=== PATIENT | male | born 1975 | race Caucasian/White ===

== ENCOUNTER 2021-10-27 23:31 | Observation (INO) ==
[2021-10-28 00:18] LABS: Basophils # 0.1 K/mcL (0.0-0.2); Basophils % 1.2 %; Eosinophils # 0.4 K/mcL (0.0-0.6); Eosinophils % 6.3 %; Hematocrit 41.9 % (37.5-50.1); Hemoglobin 14.2 g/dL (12.9-16.9); Immature Granulocytes % 0.2 % (0-4); Lymphocytes # 1.4 K/mcL (0.6-4.6); Lymphocytes % 23.9 %; Mean Corpuscular HGB Conc 33.9 g/dL (31.6-35.5); Mean Corpuscular Hemoglobin 30.3 pg (28.0-33.3); Mean Corpuscular Volume 89.3 fL (83.0-100.0); Mean Platelet Volume 9.9 fL (9.4-12.4); Monocytes # 0.5 K/mcL (0.0-1.3); Monocytes % 8.3 %; Neutrophils # 3.6 K/mcL (1.6-8.9); Platelet Count 166 K/mcL (140-400); Red Blood Count 4.69 M/mcL (4.19-5.50); Red Cell Distribution Width 12.5 % (11.5-14.5); Segmented Neutrophils % 60.1 %
[2021-10-28 00:33] LABS: BUN/Creatinine Ratio 15 (6-26); Blood Urea Nitrogen 14 mg/dL (6-20); Calcium 9.2 mg/dL (8.6-10.3); Carbon Dioxide 24 mEq/L (23-29); Chloride 105 mEq/L (98-107); Glucose 135 mg/dL (70-105); Osmolality,Calculated 285 (280-300); Potassium 3.9 mEq/L (3.5-5.1); Sodium 136 mEq/L (136-145); Troponin I < 0.03 ng/mL (< 0.04)
[2021-10-28 00:39] LABS: INR 1.1; Prothrombin Time 12.4 Seconds (9.4-12.1)
[2021-10-28 00:42] LABS: Activated Partial Thrombo Time 25.5 Seconds (26.0-36.0)
[2021-10-28] MEDS ORDERED: Morphine Sulfate 2 MG/ML SYRINGE IVP ONE ×2 (04:06→04:43)
[2021-10-28] MEDS ORDERED: Melatonin 3 MG TABLET PO PRN (05:24)
[2021-10-28] MEDS ORDERED: Ondansetron 4 MG/2 ML VIAL IVP PRN (05:24)
[2021-10-28] MEDS ORDERED: Naloxone 0.4 MG/ML INJ IVP PRN (05:24)
[2021-10-28] MEDS ORDERED: *HR* Labetalol 20 MG/4 ML SYRINGE IVP PRN (05:27)
[2021-10-28] MEDS ORDERED: *HR* Enoxaparin 40 MG/0.4 ML SYRINGE SQ SCH (06:00)
[2021-10-28] MEDS ORDERED: Acetaminophen 325 MG TABLET PO PRN (06:00)
[2021-10-28] MEDS: Nitroglycerin 0.4 MG TAB.SUBL SL PRN ×3 (06:31→06:50)
[2021-10-28] MEDS ORDERED: Ketorolac 30 MG/ML VIAL IVP ONE (06:49)
[2021-10-28 07:45] VITALS: BP 211/175; PULSE 82; TEMP 98.5; O2SAT 98
[2021-10-28] MEDS ORDERED: amLODIPine 5 MG TABLET PO SCH (09:00)
[2021-10-28] MEDS ORDERED: lisinopriL 10 MG TABLET PO SCH (09:00)
[2021-10-28] MEDS ORDERED: Aspirin Enteric Coated 81 MG Tablet PO SCH (09:00)
== END 2021-10-28 11:44 | disposition left against medical advice (07) ==
LOC: 2ANU 23:31 → EMEROOARM 23:31 → SUATTDRO 10-28 04:58 → 2ANU 10-28 05:59
PROVIDERS: ADMIT Internal Medicine; ATTEND Internal Medicine